=== PATIENT | female | born 2000 | race Two or more races ===

== ENCOUNTER 2024-04-17 17:10 | Emergency (ER) | payer MEDICAID ==
[~2024-04-17] VITALS: Ht 170.2 cm; Wt 74.8 kg
[2024-04-17 17:41] VITALS: BP 103/61; TEMP 98.4
[2024-04-17] MEDS ORDERED: ALBU18HF2 INH (17:56)
[2024-04-17 18:03] VITALS: O2SAT 99
== END 2024-04-17 18:04 | disposition home or self-care (01) ==
LOC: ER 17:29
DX: O26.893 Other specified pregnancy related conditions, third trimester (principal); R05.9 Cough, unspecified; Z3A.29 29 weeks gestation of pregnancy